=== PATIENT | female | born 2000 | race Caucasian/White ===

== ENCOUNTER 2022-01-22 10:55 | Emergency (ER) | payer BC, SELFPAY ==
[2022-01-22 11:03] VITALS: BP 140/117; PULSE 113; RESP 18; TEMP 36.3; O2SAT 100
--- NOTE | 2022-01-22 11:11 | ED.URI ---
HPI - URI/Sore Throat General Chief Complaint: Skin/Abscess/Foreign Body Stated Complaint: LUMP ON NECK Time Seen by Provider: 01/22/22 11:08 Source: patient Mode of arrival: ambulatory Limitations: no limitations History of Present Illness HPI Narrative: Ms. Henderson is a 21-year-old female patient presenting to the clinic today with complaints of a lump to the right side of her neck that has been ongoing for a couple days. She denies any fever or chills. She denies any sore throat, ear pain, or runny nose. She reports that the swollen knot is painful to palpation. Related Data Home Medications Medication Instructions Recorded Confirmed norethindrone 1 mg-ethinyl tablet 01/22/22 estradiol 20 mcg (24)-iron 75 mg (4) tablet (Joyce 24 Fe) Allergies Allergy/AdvReac Type Severity Reaction Status Date / Time No Known Allergies Allergy Unverified 12/27/18 18:40 Review of Systems Review of Systems: Pertinent positives per HPI. Patient denies any fever, chills, rash, headache, visual changes, dizziness, cough, runny nose, sore throat, shortness of breath, chest pain, palpitations, nausea, vomiting, diarrhea, constipation, abdominal pain, or any urinary issues. PMFSH Comments At the time of my signature, I reviewed and agree with the nursing past medical, surgical, social, and family history. There is no relevant family history pertinent to the patient complaint. Exam Narrative: General: Well-developed, well nourished, in no apparent distress Head: Normocephalic, atraumatic Eyes: Pupils equally round and reactive to light bilaterally, EOM intact, sclera and conjunctive clear, no discharge, lids normal Ears: TMs intact and clear, ear canals clear, no drainage, grossly hearing normal. Nose: Nares patent, no discharge, no inflammation, no sinus tenderness. Mouth: Oropharynx without lesions or masses, good dentition, MMM. Oropharynx red with mild tonsillar swelling Neck: Supple, trachea midline, enlargement of right anterior cervical nodes, no thyroid masses or goiter palpable. Cardio: Regular rate and rhythm, s1 and s2 normal, no murmur appreciated. Resp: Clear to auscultation bilaterally anteriorly and posteriorly, no rhonchi, rales, wheezing or rubs Course Course Emergency Course: Portions of this record may have been created with voice recognition software. Level of Care: Express Care Visit Vital Signs Vital signs: Vital Signs Temperature 36.3 C L 01/22/22 11:03 Pulse Rate 113 H 01/22/22 11:03 Respiratory Rate 18 01/22/22 11:03 Blood Pressure 140/117 H 01/22/22 11:03 Pulse Oximetry 100 01/22/22 11:03 Oxygen Delivery Room Air 01/22/22 11:03 Temperature 36.3 C L 01/22/22 11:03 Pulse Rate 113 H 01/22/22 11:03 Respiratory Rate 18 01/22/22 11:03 Blood Pressure 140/117 H 01/22/22 11:03 Pulse Oximetry 100 01/22/22 11:03 Oxygen Delivery Room Air 01/22/22 11:03 Vital signs reviewed MDM - URI/Sore Throat MDM Narrative Medical decision making narrative: At the time of visit patient is resting comfortably on the exam table. She has anterior right cervical lymphadenopathy that is painful to palpation. Oropharynx is red. Strep testing obtained and was negative in the clinic. I will send this for culture. She denies any fever or chills. I suspect that this may be a viral infection however will send for culture and recommend follow-up with her PCP if symptoms persist for ultrasound and lab work. Anticipatory guidance given to patient and she voiced understanding of discharge instructions and agrees to the treatment plan. Discharge Plan Discharge Clinical Impression: Anterior cervical lymphadenopathy Patient Disposition: Home, Self-Care Condition: Stable Instructions: Lymphadenopathy (ED) Additional Instructions: Strep screen was negative in the clinic. We will send for throat culture. Increase fluids and stay well hydrated Tylenol/motrin for pa
== END 2022-01-22 11:27 | disposition home or self-care (01) ==
PROVIDERS: Emergency Provider Nurse Practitioner Family
DX: R59.0 Localized enlarged lymph nodes (principal)
CPT/HCPCS: 87081; 87880; 99213; G0463

== ENCOUNTER 2022-05-10 13:51 | Emergency (ER) | payer BC, SELFPAY ==
--- NOTE | 2022-05-10 13:53 | ED.URI ---
HPI - URI/Sore Throat General Chief Complaint: Upper Respiratory Infection Stated Complaint: Sore Throat Time Seen by Provider: 05/10/22 13:53 Source: patient and RN notes reviewed History of Present Illness HPI Narrative: Patient is a 21-year-old female who presents the urgent care with complaints of a sore throat since Thursday. Patient states she also initially had a low-grade fever. States she now has body aches, fatigue, nasal congestion and hoarseness. Patient has been taking DayQuil and NyQuil. States that she has had 2 negative COVID test since symptom onset. Denies any ill exposures. Denies any nausea or vomiting. No other acute complaints. No acute distress noted. Patient aware of the plan of care. Some parts of this dictation were generated by voice recognition software and may contain typographical and/or grammatical inaccuracies. Related Data Home Medications Medication Instructions Recorded Confirmed norethindrone 1 mg-ethinyl tablet 01/22/22 estradiol 20 mcg (24)-iron 75 mg (4) tablet (Joyce 24 Fe) Allergies Allergy/AdvReac Type Severity Reaction Status Date / Time No Known Allergies Allergy Verified 05/10/22 14:04 Review of Systems Review of Systems: CONSTITUTIONAL: Denies fever, chills, or sweats. Reports of fatigue EYES: Denies visual changes, redness, or discharge. ENT: Denies rhinorrhea, otalgia. Reports of nasal congestion sore throat/hoarseness CARDIOVASCULAR: Denies chest pain, palpitations, or edema. RESPIRATORY: Denies cough or dyspnea. GASTROINTESTINAL: Denies abdominal pain, nausea, vomiting, or diarrhea. GENITOURINARY: Denies dysuria or hematuria. SKIN: Denies rash or itching. MUSCULOSKELETAL: Denies back pain, joint pain. Reports of body aches NEUROLOGIC: Denies headache, numbness, or weakness. All other systems reviewed are negative, except as documented in HPI. PMFSH Comments At the time of my signature, I reviewed and agree with the nursing past medical, surgical, social, and family history. There is no relevant family history pertinent to the patient complaint. Exam Narrative: GENERAL: This is a well-nourished, well-developed patient. Appears fatigued HEAD: normocephalic, atraumatic. EYES: PERRL. Sclera clear/white. Vision is grossly intact. EARS: External ears normal, auditory canals clear and without drainage, TMs normal without perforation. Hearing grossly intact. NOSE: External nose normal with no obvious nasal discharge, nares without redness, no rhinorrhea. THROAT: Mucous membranes moist, posterior pharynx clear. Moderate postnasal drainage. Hoarse voice NECK: Neck supple, non-tender without lymphadenopathy CARDIOVASCULAR: Regular rate and rhythm without murmurs, gallops, or rubs. RESPIRATORY: Clear to auscultation. Breath sounds equal bilaterally. No wheezes, rales, or rhonchi. SKIN: warm, intact with no suspicious lesions or rash, good texture and turgor. NEURO: awake, alert, and oriented to person, place and time. There were no obvious focal neurologic abnormalities. EXTREMITIES: No clubbing, cyanosis, or edema. Course Course Level of Care: Express Care Visit Vital Signs Vital signs: Vital Signs Temperature 98.1 F 05/10/22 14:00 Pulse Rate 93 05/10/22 14:00 Respiratory Rate 18 05/10/22 14:00 Blood Pressure 139/82 05/10/22 14:00 Pulse Oximetry 100 05/10/22 14:00 Oxygen Delivery Room Air 05/10/22 14:00 Temperature 98.1 F 05/10/22 14:00 Pulse Rate 93 05/10/22 14:00 Respiratory Rate 18 05/10/22 14:00 Blood Pressure 139/82 05/10/22 14:00 Pulse Oximetry 100 05/10/22 14:00 Oxygen Delivery Room Air 05/10/22 14:00 Reviewed MDM - URI/Sore Throat MDM Narrative Medical decision making narrative: Reviewed lab results with the patient. She is aware that strep swab was negative. Educated patient on culture we will call within 72 hours of cultures positive antibiotics necessary. Advised patient to complete the s
[2022-05-10 14:00] VITALS: BP 139/82; PULSE 93; RESP 18; TEMP 36.7; O2SAT 100
== END 2022-05-10 14:35 | disposition home or self-care (01) ==
PROVIDERS: Emergency Provider Nurse Practitioner Family
DX: J04.0 Acute laryngitis (principal); J02.9 Acute pharyngitis, unspecified
CPT/HCPCS: 87081; 87880; 99213; G0463